=== PATIENT | female | born 1990 | race American Indian/Alaskan Native ===

== ENCOUNTER 2018-01-14 08:15 | Emergency (ER) | payer SELFPAY ==
[2018-01-14 08:45] VITALS: BP 135/92
[2018-01-14 09:23] LABS: Bilirubin,Urine NEG (Negative); Blood,Urine NEG (Negative); Color,Urine Amber (Yellow); HCG Qualitative,Urine Negative (Negative); Mucus,Urine 3+ /HPF; RBC,Urine < 1.0 /HPF (0.0-6.0)
[2018-01-14] MEDS ORDERED: XYLOCAINE 1% MPF 5 mL INFILTRATI ONE (09:40)
[2018-01-14] MEDS ORDERED: ROCEPHIN IM ONE (09:40)
[2018-01-14] MEDS ORDERED: FLAGYL PO ONE (09:41)
[2018-01-14] MEDS ORDERED: ZITHROMAX PO ONE (09:41)
[2018-01-14] MEDS ORDERED: ZOFRAN ODT PO ONE (09:41)
--- NOTE | 2018-01-14 09:47 | Emergency Department Report ---
ED Female HPI - General Chief complaint: Urogenital-Female Stated complaint: DISCHARGE Time Seen by Provider: 01/14/18 09:13 Source: patient Mode of arrival: Ambulatory Limitations: No Limitations - History of Present Illness Initial comments: Patient presents to the emergency department with a chief complaint of vaginal discharge for the last couple of days. The patient describes the discharge as white " creamy" in nature and very similar to a previous STD that she was treated for. Patient states she is concerned for STD exposures and would like to be treated. MD Complaint: vaginal discharge, dysuria, possible STD -: Gradual Radiation: non-radiating Severity scale (0 -10): 0 Consistency: constant Improves with: none Worsens with: none Are you Now?: No Associated Symptoms: vaginal discharge, dysuria. denies: vaginal bleeding, abdominal pain, nausea/vomiting, fever/chills, hematuria - Related Data Previous Rx's Medication Instructions Recorded Last Taken Type Sulfamethoxazole/Trimethoprim 1 each PO BID #10 tablet 01/14/18 Unknown Rx [Bactrim Ds Tablet] Allergies Allergy/AdvReac Type Severity Reaction Status Date / Time No Known Allergies Allergy Unverified 01/14/18 08:37 ED Review of Systems ROS: Stated complaint: DISCHARGE Other details as noted in HPI Comment: All other systems reviewed and negative Constitutional: denies: chills, fever Eyes: denies: eye pain, eye discharge, vision change ENT: denies: ear pain, throat pain Respiratory: denies: cough, shortness of breath, wheezing Cardiovascular: denies: chest pain, palpitations Endocrine: no symptoms reported Gastrointestinal: denies: abdominal pain, nausea, diarrhea Genitourinary: discharge. denies: urgency, dysuria Musculoskeletal: denies: back pain, joint swelling, arthralgia Skin: denies: rash, lesions Neurological: denies: headache, weakness, paresthesias Psychiatric: denies: anxiety, depression Hematological/Lymphatic: denies: easy bleeding, easy bruising ED Past Medical Hx - Past Medical History Previous Medical History?: No - Surgical History Past Surgical History?: No - Social History Smoking Status: Never Smoker Substance Use Type: Alcohol - Medications Home Medications: Home Medications Medication Instructions Recorded Confirmed Last Taken Type Sulfamethoxazole/Trimethoprim 1 each PO BID #10 tablet 01/14/18 Unknown Rx [Bactrim Ds Tablet] ED Physical Exam - General Limitations: No Limitations General appearance: alert, in no apparent distress - Head Head exam: Present: atraumatic, normocephalic - Eye Eye exam: Present: normal appearance, PERRL, EOMI - ENT ENT exam: Present: mucous membranes moist - Neck Neck exam: Present: normal inspection - Respiratory Respiratory exam: Present: normal lung sounds bilaterally. Absent: respiratory distress, wheezes, rales, rhonchi - Cardiovascular Cardiovascular Exam: Present: regular rate, normal rhythm. Absent: systolic murmur, diastolic murmur, rubs, gallop - GI/Abdominal GI/Abdominal exam: Present: soft, normal bowel sounds. Absent: distended, tenderness - Rectal Rectal exam: Present: deferred - External exam: Present: other (deferred) Speculum exam: Present: other (deferred) Bi-manual exam: Present: other (deferred) - Extremities Exam Extremities exam: Present: normal inspection - Back Exam Back exam: Present: normal inspection - Neurological Exam Neurological exam: Present: alert, oriented X3 - Psychiatric Psychiatric exam: Present: normal affect, normal mood - Skin Skin exam: Present: warm, dry, intact, normal color. Absent: rash ED Course Vital Signs 01/14/18 08:37 Temperature 97.9 F Pulse Rate 88 Respiratory 17 Rate Blood Pressure 135/92 O2 Sat by Pulse 100 Oximetry ED Medical Decision Making - Medical Decision Making Discussed safe sex practices with the patient Patient given IM injections of trazodone, and po Flagyl and azithromycin Critical care attestation.: If time is entered above; I have spent that time in minutes in the direct care of this critically ill patient, excluding procedure time. ED Disposition Clinical Impression: Vaginal discharge Disposition: - TO HOME OR SELFCARE Is pt being admited?: No Does the pt Need Aspirin: No Condition: Stable Instructions: Safe Sex (ED), Sexually Transmitted Diseases (ED), Urinary Tract Infection in Women (ED) Additional Instructions: return if worse Prescriptions: Sulfamethoxazole/Trimethoprim [Bactrim Ds Tablet] 1 each PO BID #10 tablet Referrals: PRIMARY CARE, [Primary Care Provider] - 3-5 Days [facility] [Outside] - 3-5 Days [facility] [Provider Group] - 3-5 Days Time of Disposition: 09:47
== END 2018-01-14 10:27 | disposition home or self-care (01) ==
LOC: ED 08:15
DX: N89.8 Other specified noninflammatory disorders of vagina (principal); R30.0 Dysuria; Z20.2 Contact with and (suspected) exposure to infections with a predominantly sexual mode of transmission
CPT/HCPCS: 81001; 81025; 87591; 96372; 99283; J0696; Q0162

== ENCOUNTER 2018-06-04 05:51 | Emergency (ER) | payer OTHER ==
[2018-06-04 05:59] VITALS: BP 120/79
[2018-06-04 07:28] LABS: Bacteria,Urine 1+ /HPF (Negative); Bilirubin,Urine NEG (Negative); Blood,Urine NEG (Negative); Color,Urine Yellow (Yellow); Mucus,Urine FEW /HPF; Protein,Urine <15 mg/dL mg/dL (Negative)
--- NOTE | 2018-06-04 07:34 | Emergency Department Report ---
ED Female HPI - General Chief complaint: Urogenital-Female Stated complaint: DISCHARGE Time Seen by Provider: 06/04/18 07:34 Source: patient Mode of arrival: Ambulatory Limitations: No Limitations - History of Present Illness Initial comments: 27-year-old female here for vaginal discharge 2 weeks. She says she has not been sexually active for a menses she is worried about this STD and she has had STD check 6 months ago. And was fine. She says she is having some urinary frequency with some pressure while he urinated. Denies any vaginal bleeding or abdominal pain.Pain. No cough or shortness of breath. Pain is 0/10. Denies any nausea vomiting or fever or chills. MD Complaint: vaginal discharge Onset/Timin -: week(s) Severity scale (0 -10): 0 Improves with: none Worsens with: none Are you Now?: No Associated Symptoms: vaginal discharge. denies: vaginal bleeding, headaches, loss of appetite, dysuria, hematuria, rash, seizure, shortness of breath, syncope, weakness - Related Data Sexually active: No Previous Rx's Medication Instructions Recorded Last Taken Type Sulfamethoxazole/Trimethoprim 1 each PO BID #10 tablet 01/14/18 Unknown Rx [Bactrim Ds Tablet] Acetaminophen [Tylenol Extra 500 mg PO Q4-6H #20 tablet 02/19/18 Unknown Rx Strength] Baclofen [Lioresal] 10 mg PO TID #15 tab 02/19/18 Unknown Rx metroNIDAZOLE [Flagyl] 500 mg PO Q12HR 7 Days #14 tab 06/04/18 Unknown Rx Allergies Allergy/AdvReac Type Severity Reaction Status Date / Time No Known Allergies Allergy Unverified 01/14/18 08:37 ED Review of Systems ROS: Stated complaint: DISCHARGE Other details as noted in HPI Constitutional: denies: chills, fever Respiratory: denies: cough, shortness of breath, wheezing Cardiovascular: denies: chest pain, palpitations Gastrointestinal: denies: abdominal pain, nausea, vomiting Genitourinary: urgency, frequency, discharge. denies: dysuria, hematuria Musculoskeletal: denies: back pain, arthralgia, myalgia Skin: denies: rash Neurological: denies: headache ED Past Medical Hx - Past Medical History Previous Medical History?: No - Surgical History Past Surgical History?: No - Family History Family history: hypertension - Social History Smoking Status: Never Smoker Substance Use Type: None - Medications Home Medications: Home Medications Medication Instructions Recorded Confirmed Last Taken Type Sulfamethoxazole/Trimethoprim 1 each PO BID #10 tablet 01/14/18 Unknown Rx [Bactrim Ds Tablet] Acetaminophen [Tylenol Extra 500 mg PO Q4-6H #20 tablet 02/19/18 Unknown Rx Strength] Baclofen [Lioresal] 10 mg PO TID #15 tab 02/19/18 Unknown Rx metroNIDAZOLE [Flagyl] 500 mg PO Q12HR 7 Days #14 tab 06/04/18 Unknown Rx ED Physical Exam - General Limitations: No Limitations General appearance: alert, in no apparent distress - Head Head exam: Present: atraumatic, normocephalic, normal inspection - Eye Eye exam: Present: normal appearance, PERRL, EOMI - ENT ENT exam: Present: normal exam, normal orophraynx, mucous membranes moist - Neck Neck exam: Present: normal inspection, full ROM. Absent: tenderness, ly mphadenopathy - Respiratory Respiratory exam: Present: normal lung sounds bilaterally. Absent: respiratory distress, chest wall tenderness - Cardiovascular Cardiovascular Exam: Present: regular rate, normal rhythm, normal heart sounds - GI/Abdominal GI/Abdominal exam: Present: soft, normal bowel sounds. Absent: distended, tenderness, rigid, organomegaly, mass, bruit - External exam: Present: normal external exam. Absent: erythema, swelling, lesions, lacerations, ecchymosis, bleeding Speculum exam: Present: cervical discharge. Absent: normal speculum exam, erythema, vaginal bleeding, foreign body, tissue, laceration Bi-manual exam: Present: normal bi-manual exam. Absent: cervical motion tendernes, adnexal tenderness, adnexal mass, uterine enlargement, uterine tenderness - Extremities Exam Extremities exam: Present: normal inspection, full ROM, normal capillary refill, other (No cce. + 2 pulses in all extremities, no neurovascular compromise). Absent: tenderness, pedal edema, joint swelling - Back Exam Back exam: Present: full ROM, other (ambulates without any difficulties). Absent: tenderness, CVA tenderness (R), CVA tenderness (L), rash noted - Neurological Exam Neurological exam: Present: alert, oriented X3, normal gait - Psychiatric Psychiatric exam: Present: normal affect, normal mood - Skin Skin exam: Present: warm, dry, intact, normal color, rash, erythema, vesicles - Expanded Skin Exam Expanded Type of lesion: Present: rash Distribution of rash: genitals Description of rash: Present: erythematous, vesicular ED Course Vital Signs 06/04/18 05:54 Temperature 97.8 F Pulse Rate 64 Respiratory 18 Rate Blood Pressure 120/79 O2 Sat by Pulse 100 Oximetry - Reevaluation(s) Reevaluation #1: 06/04/18 08:39 Patient stable throughout ED course. I discussed with her her urinalysis and wet prep. CHL Pending 06/04/18 08:39 ED Medical Decision Making - Lab Data Lab Results 06/04/18 Range/Units 07:12 Urine Color Yellow (Yellow) Urine Turbidity Clear (Clear) Urine pH 5.0 (5.0-7.0) Ur Specific [place] 1.027 (1.003-1.030) Urine Protein <15 mg/dl (Negative) mg/dL Urine Glucose (UA) Neg (Negative) mg/dL Urine Ketones Neg (Negative) mg/dL Urine Blood Neg (Negative) Urine Nitrite Neg (Negative) Urine Bilirubin Neg (Negative) Urine Urobilinogen 2.0 (<2.0) mg/dL Ur Leukocyte Esterase Neg (Negative) Urine WBC (Auto) 2.0 (0.0-6.0) /HPF Urine RBC (Auto) 2.0 (0.0-6.0) /HPF U Epithel Cells (Auto) 3.0 (0-13.0) /HPF Urine Bacteria (Auto) 1+ (Negative) /HPF Urine Mucus Few /HPF wet prep positive bacterial vaginosis, negative yeast and Trichomonas. CHL Pending - Medical Decision Making This 27-year-old female here for that she is having vaginal discharge 2 weeks that have slight fishy odor. Please refer to exam notes for details. Labs: Wet prep positive for BV, negative for trichomoniasis and yeast CHL-pended Urinalysis 1+ bacteria otherwise normal. Assessment/plan Vaginal discharge patient with Bacterial vaginosis-positive wet prep. Patient will be sent home on Flagyl. I discussed diagnosis and treatment plan the patient she voiced understanding. I discussed with her that she needs the refrain from drinking alcohol as this medication can cause negative effect could all call. I also discussed that she needs to go to her [employer] or health department for recheck in 7-10 days. She voiced understanding and discharged home in stable condition with prescription for Flagyl Critical care attestation.: If time is entered above; I have spent that time in minutes in the direct care of this critically ill patient, excluding procedure time. ED Disposition Clinical Impression: Bacterial vaginosis, Vaginal discharge Disposition: TO HOME OR SELFCARE Is pt being admited?: No Does the pt Need Aspirin: No Condition: Stable Instructions: Bacterial Vaginosis (ED) Additional Instructions: Please follow up with health department in 7-10 days for recheck You can returned to the medical records department to get your results in approximately 5 days for gonorrhea and chlamydia. May she take 3 times a day with you Take medication as prescribed and please do not take this medication with all call as aching cause adverse reaction. Practice safe sex Referrals: [facility] [Outside] - 7-10 days [facility] [Outside] - 7-10 days Forms: STI Treatment and Prevention, Work/School Release Form(ED)
== END 2018-06-04 09:03 | disposition home or self-care (01) ==
LOC: ED 05:51
DX: N76.0 Acute vaginitis (principal)
CPT/HCPCS: 81001; 87210; 87591; 99284

== ENCOUNTER 2018-07-05 11:27 | Emergency (ER) | payer OTHER ==
--- NOTE | 2018-07-05 11:47 | Emergency Department Report ---
ED ENT HPI - General Chief complaint: Earache Stated complaint: LFT EAR PAIN Time Seen by Provider: 07/05/18 11:42 Source: patient Mode of arrival: Ambulatory Limitations: No Limitations - History of Present Illness MD complaint: ear pain -: days(s) (3) Location: L ear Severity: moderate Quality: aching, dull Consistency: constant Worsens with: none Associated Symptoms: discharge from ear. denies: cough, toothache, tinnitus - Related Data Previous Rx's Medication Instructions Recorded Last Taken Type Sulfamethoxazole/Trimethoprim 1 each PO BID #10 tablet 01/14/18 Unknown Rx [Bactrim Ds Tablet] Acetaminophen [Tylenol Extra 500 mg PO Q4-6H #20 tablet 02/19/18 Unknown Rx Strength] Baclofen [Lioresal] 10 mg PO TID #15 tab 02/19/18 Unknown Rx metroNIDAZOLE [Flagyl] 500 mg PO Q12HR 7 Days #14 tab 06/04/18 Unknown Rx Neomy/Polymyx B/Hc (Otic) Soln 4 drops TID #1 bottle 07/05/18 Unknown Rx [Cortisporin (Otic) Soln] Allergies Allergy/AdvReac Type Severity Reaction Status Date / Time No Known Allergies Allergy Verified 07/05/18 11:27 ED Dental HPI - General Chief complaint: Earache Stated complaint: LFT EAR PAIN Time Seen by Provider: 07/05/18 11:42 Source: patient Mode of arrival: Ambulatory Limitations: No Limitations - Related Data Previous Rx's Medication Instructions Recorded Last Taken Type Sulfamethoxazole/Trimethoprim 1 each PO BID #10 tablet 01/14/18 Unknown Rx [Bactrim Ds Tablet] Acetaminophen [Tylenol Extra 500 mg PO Q4-6H #20 tablet 02/19/18 Unknown Rx Strength] Baclofen [Lioresal] 10 mg PO TID #15 tab 02/19/18 Unknown Rx metroNIDAZOLE [Flagyl] 500 mg PO Q12HR 7 Days #14 tab 06/04/18 Unknown Rx Neomy/Polymyx B/Hc (Otic) Soln 4 drops TID #1 bottle 07/05/18 Unknown Rx [Cortisporin (Otic) Soln] Allergies Allergy/AdvReac Type Severity Reaction Status Date / Time No Known Allergies Allergy Verified 07/05/18 11:27 ED Review of Systems ROS: Stated complaint: LFT EAR PAIN Other details as noted in HPI Constitutional: denies: chills, fever Eyes: denies: eye pain, eye discharge, vision change ENT: denies: ear pain, throat pain Respiratory: denies: cough, shortness of breath, wheezing Cardiovascular: denies: chest pain, palpitations Endocrine: no symptoms reported Gastrointestinal: denies: abdominal pain, nausea, diarrhea Genitourinary: denies: urgency, dysuria, discharge Musculoskeletal: denies: back pain, joint swelling, arthralgia Skin: denies: rash, lesions Neurological: denies: headache, weakness, paresthesias Psychiatric: denies: anxiety, depression Hematological/Lymphatic: denies: easy bleeding, easy bruising ED Past Medical Hx - Past Medical History Previous Medical History?: No - Surgical History Past Surgical History?: No - Social History Smoking Status: Never Smoker Substance Use Type: None - Medications Home Medications: Home Medications Medication Instructions Recorded Confirmed Last Taken Type Sulfamethoxazole/Trimethoprim 1 each PO BID #10 tablet 01/14/18 Unknown Rx [Bactrim Ds Tablet] Acetaminophen [Tylenol Extra 500 mg PO Q4-6H #20 tablet 02/19/18 Unknown Rx Strength] Baclofen [Lioresal] 10 mg PO TID #15 tab 02/19/18 Unknown Rx metroNIDAZOLE [Flagyl] 500 mg PO Q12HR 7 Days #14 tab 06/04/18 Unknown Rx Neomy/Polymyx B/Hc (Otic) Soln 4 drops TID #1 bottle 07/05/18 Unknown Rx [Cortisporin (Otic) Soln] ED Physical Exam - General Limitations: No Limitations General appearance: alert, in no apparent distress - Head Head exam: Present: atraumatic, normocephalic - Eye Eye exam: Present: normal appearance - ENT ENT exam: Present: mucous membranes moist, other (TRAGAL TENDERNESS WITH EXCESSIVE CREUMEN. CANAL RED WITH SWELLING. TM INTACT. [id number] MASTOID. NO LYMPHADENOPATNY) - Neck Neck exam: Present: normal inspection - Respiratory Respiratory exam: Present: normal lung sounds bilaterally. Absent: respiratory distress - Cardiovascular Cardiovascular Exam: Present: regular rate, normal rhythm. Absent: systolic murmur, diastolic murmur, rubs, gallop - GI/Abdominal GI/Abdominal exam: Present: soft, normal bowel sounds - Extremities Exam Extremities exam: Present: normal inspection - Back Exam Back exam: Present: normal inspection - Neurological Exam Neurological exam: Present: alert, oriented X3 - Psychiatric Psychiatric exam: Present: normal affect, normal mood - Skin Skin exam: Present: warm, dry, intact, normal color. Absent: rash ED Course Vital Signs 07/05/18 11:38 Temperature 98 F Pulse Rate 70 Respiratory 18 Rate Blood Pressure 133/71 [Left] O2 Sat by Pulse 100 Oximetry Critical care attestation.: If time is entered above; I have spent that time in minutes in the direct care of this critically ill patient, excluding procedure time. ED Disposition Clinical Impression: Otitis externa, Excessive cerumen in left ear canal, Otalgia of left ear Disposition: DC- TO HOME OR SELFCARE Is pt being admited?: No Does the pt Need Aspirin: No Condition: Stable Instructions: Otitis Externa (ED) Additional Instructions: ALSO DONT FOREGET TO GET DEBROX OTC FOR YOUR LEFT EAR WAX Prescriptions: Neomy/Polymyx B/Hc (Otic) Soln [Cortisporin (Otic) Soln] 4 drops TID #1 natalie barry Referrals: [facility] [Provider Group] - 3-5 Days
== END 2018-07-05 12:05 | disposition home or self-care (01) ==
LOC: ED 11:27
CPT/HCPCS: 99282